=== PATIENT | male | born 1960 | race Caucasian/White ===

== ENCOUNTER 2017-12-26 13:30 | Outpatient (AMBR) | payer MEDICARE, MEDICAID, SELFPAY ==
--- NOTE | 2017-11-11 15:58 | PT.ODAYNRPT ---
PT Outpatient Daily Note OP Daily Note Visit Reasons: LEFT LEG Outpatient Physical Therapy Treatment Date: 11/11/17 Subjective: About the same as time of evaluation Objective: See F/S for therex Assessment: Fair exercise tolerance today with low ankle and foot pain Plan: Continue per POC Length of Time (minutes) of Treatment: 30 Minutes Office Procedures PT Treatments Therapeutic Exercise 30 minutes: Yes
--- NOTE | 2017-11-18 17:49 | PT.ODAYNRPT ---
PT Outpatient Daily Note OP Daily Note Visit Reasons: LEFT LEG Outpatient Physical Therapy Treatment Date: 11/18/17 Subjective: Pt reports he has some pain in the ankle at times but today it's ok Objective: See F/S for therex NMR: PNF in quadruped alternating isometrics x10' Assessment: Fair exercise tolerance today with low ankle and foot pain. Pt has shoulders shifted to the R and the cane is too high in the R hand. Will shift shorter cane to L hand to correct. Plan: Continue per POC Length of Time (minutes) of Treatment: 30 Minutes Office Procedures PT Procedures Therapeutic Exercise 15 minutes: Yes Neuro Re-Education 15 Minutes: Yes PT Treatments Therapeutic Exercise 30 minutes: Yes
--- NOTE | 2017-11-21 16:33 | PT.ODAYNRPT ---
PT Outpatient Daily Note OP Daily Note Visit Reasons: LEFT LEG Outpatient Physical Therapy Treatment Date: 11/21/17 Subjective: He gets tired after exercising a lot faster than he would like to. Objective: See F/S for therex Assessment: Pt has shoulders shifted to the R and the cane is too high in the R hand. Can shift cane to L hand but pt gait is ataxic. Delayed balance reactions and coordination limit dynamic mobility and safety. Gross LE strength is fair but lacks fine motor control. Plan: Continue per POC Length of Time (minutes) of Treatment: 30 Minutes Office Procedures PT Procedures Therapeutic Exercise 15 minutes: Yes Neuro Re-Education 15 Minutes: Yes PT Procedures Therapeutic Exercise 30 minutes: Yes PT Treatments Therapeutic Exercise 30 minutes: Yes
--- NOTE | 2017-11-26 18:41 | PT.ODAYNRPT ---
PT Outpatient Daily Note Date of Service: November 26, 2017 OP Daily Note Visit Reasons: LEFT LEG Outpatient Physical Therapy Treatment Date: 11/26/17 Subjective: He got a night splint for the L foot, hopes it will reduce plantar pain. 2/10 foot pain today Objective: See F/S for therex Assessment: Can shift cane to L hand but pt gait is ataxic. Delayed balance reactions and coordination limit dynamic mobility and safety. Gross LE strength is fair but lacks fine motor control. Plan: Continue per POC Length of Time (minutes) of Treatment: 30 Minutes Office Procedures PT Procedures Therapeutic Exercise 15 minutes: Yes Neuro Re-Education 15 Minutes: Yes PT Procedures Therapeutic Exercise 30 minutes: Yes PT Procedures PT Date of Service: 11/26/17 Therapeutic Exercise 30 minutes: Yes PT Treatments Therapeutic Exercise 30 minutes: Yes
--- NOTE | 2017-11-28 16:13 | PT.ODAYNRPT ---
PT Outpatient Daily Note Date of Service: November 28, 2017 OP Daily Note Visit Reasons: LEFT LEG Outpatient Physical Therapy Treatment Date: 11/28/17 Subjective: He got a night splint for the L foot, hopes it will reduce plantar pain. 2/10 foot pain today Objective: See F/S for therex MT: STM of plantar aspect L foot x10' Assessment: Can shift cane to L hand but pt gait is ataxic either way. Delayed balance reactions and coordination limit dynamic mobility and safety. Gross LE strength is fair but lacks fine motor control. Low tissue irritability of plantar fascia after injection. Plan: Continue per POC Length of Time (minutes) of Treatment: 30 Minutes Office Procedures PT Procedures Therapeutic Exercise 15 minutes: Yes Neuro Re-Education 15 Minutes: Yes PT Procedures Therapeutic Exercise 30 minutes: Yes PT Procedures PT Date of Service: 11/26/17 Therapeutic Exercise 30 minutes: Yes PT Procedures PT Date of Service: 11/28/17 Therapeutic Exercise 15 minutes: Yes Manual School Community Relations Coordinator 15 minutes: Yes PT Treatments Therapeutic Exercise 30 minutes: Yes
--- NOTE | 2017-12-02 14:41 | PT.ODAYNRPT ---
PT Outpatient Daily Note Date of Service: December 02, 2017 OP Daily Note Visit Reasons: LEFT LEG Outpatient Physical Therapy Treatment Date: 12/02/17 Subjective: Good relief from injection to foot to relieve pain. Objective: See F/S for therex Assessment: Can shift cane to L hand but pt gait is ataxic either way. Delayed balance reactions and coordination limit dynamic mobility and safety. Gross LE strength is fair but lacks fine motor control. Low tissue irritability of plantar fascia after injection. Plan: Continue per POC Length of Time (minutes) of Treatment: 30 Minutes Office Procedures PT Procedures Therapeutic Exercise 15 minutes: Yes Neuro Re-Education 15 Minutes: Yes PT Procedures Therapeutic Exercise 30 minutes: Yes PT Procedures PT Date of Service: 12/02/17 Therapeutic Exercise 30 minutes: Yes PT Procedures PT Date of Service: 11/26/17 Therapeutic Exercise 30 minutes: Yes PT Procedures PT Date of Service: 11/28/17 Therapeutic Exercise 15 minutes: Yes Manual Patient Admitting Clerk 15 minutes: Yes PT Treatments Therapeutic Exercise 30 minutes: Yes
--- NOTE | 2017-12-04 14:16 | PTNOTE_ITS ---
Addendum entered and electronically signed by Marcel Youngblood, PT 12/04/17 14: 25: Pt was seen for 40 minutes total Rx time today Original Note: PT OP Progress/Discharge Note Date of Service: December 04, 2017 Progress Note/DC Note Progress Note/Discharge Note: Progress Note Patient Information Visit Reasons: LEFT LEG Admission Reason: M72.2 Medical Diagnosis: M76.62 Service Continue Service or Discharge: Continue Service Discharge Date: 12/04/17 Status Subjective: Good relief from injection to foot to relieve pain. Objective: L ankle AROM: Strength: DF: 15 deg 4/5 PF: 65 deg 4/5 Assessment: Can shift cane to L hand but pt gait is ataxic either way. Delayed balance reactions and coordination limit dynamic mobility and safety. Gross LE strength is fair but lacks fine motor control. Low tissue irritability of plantar fascia after injection. Good closed chain exercise tolerance in standing. Plan: Continue per POC Office Procedures PT Outpatient G-Codes Date of Service PT Date of Service: 12/04/17 G-Codes Walking & Moving Around Mobility Current Status G-Code: G8978: CL 60-80% Mobility Status G-Code: G8979: CK 40-60% PT Procedures Therapeutic Exercise 15 minutes: Yes Neuro Re-Education 15 Minutes: Yes PT Procedures Therapeutic Exercise 30 minutes: Yes PT Procedures PT Date of Service: 12/02/17 Therapeutic Exercise 30 minutes: Yes PT Procedures PT Date of Service: 12/04/17 Therapeutic Exercise 30 minutes: Yes Manual Environmental Sampler 15 minutes: Yes PT Procedures PT Date of Service: 11/26/17 Therapeutic Exercise 30 minutes: Yes PT Procedures PT Date of Service: 11/28/17 Therapeutic Exercise 15 minutes: Yes Manual Environmental Sampler 15 minutes: Yes PT Treatments Therapeutic Exercise 30 minutes: Yes
--- NOTE | 2017-12-12 14:57 | PTNOTE_ITS ---
PT Outpatient Daily Note Date of Service: December 12, 2017 OP Daily Note Visit Reasons: LEFT LEG Outpatient Physical Therapy Treatment Date: 12/12/17 Subjective: Pt feels he can walk further since starting therapy Objective: See F/S for therex Assessment: Delayed balance reactions and coordination limit dynamic mobility and safety. Gross LE strength is fair but lacks fine motor control. Low tissue irritability of plantar fascia after injection. Good closed chain exercise tolerance in standing. Plan: Continue per POC Length of Time (minutes) of Treatment: 30 Minutes Office Procedures PT Outpatient G-Codes Date of Service PT Date of Service: 12/04/17 G-Codes Walking & Moving Around Mobility Current Status G-Code: G8978: CL 60-80% Mobility Status G-Code: G8979: CK 40-60% PT Procedures Therapeutic Exercise 15 minutes: Yes Neuro Re-Education 15 Minutes: Yes PT Procedures Therapeutic Exercise 30 minutes: Yes PT Procedures PT Date of Service: 12/02/17 Therapeutic Exercise 30 minutes: Yes PT Procedures PT Date of Service: 12/04/17 Therapeutic Exercise 30 minutes: Yes Manual Museum Director 15 minutes: Yes PT Procedures PT Date of Service: 12/12/17 Therapeutic Exercise 30 minutes: Yes PT Procedures PT Date of Service: 11/26/17 Therapeutic Exercise 30 minutes: Yes PT Procedures PT Date of Service: 11/28/17 Therapeutic Exercise 15 minutes: Yes Manual Museum Director 15 minutes: Yes PT Treatments Therapeutic Exercise 30 minutes: Yes
--- NOTE | 2017-12-16 14:50 | PTNOTE_ITS ---
PT Outpatient Daily Note Date of Service: December 16, 2017 OP Daily Note Visit Reasons: LEFT LEG Outpatient Physical Therapy Treatment Date: 12/16/17 Subjective: Pt feels he can walk further since starting therapy but he feels weak today. Objective: See F/S for therex Assessment: Exercise tolerance depends on the day since he has good days and bad days. Delayed balance reactions and coordination limit dynamic mobility and safety. Gross LE strength is fair but lacks fine motor control. Low tissue irritability of plantar fascia after injection. Good closed chain exercise tolerance in standing. Plan: Continue per POC Length of Time (minutes) of Treatment: 30 Minutes Office Procedures PT Outpatient G-Codes Date of Service PT Date of Service: 12/04/17 G-Codes Walking & Moving Around Mobility Current Status G-Code: G8978: CL 60-80% Mobility Status G-Code: G8979: CK 40-60% PT Procedures Therapeutic Exercise 15 minutes: Yes Neuro Re-Education 15 Minutes: Yes PT Procedures Therapeutic Exercise 30 minutes: Yes PT Procedures PT Date of Service: 12/02/17 Therapeutic Exercise 30 minutes: Yes PT Procedures PT Date of Service: 12/04/17 Therapeutic Exercise 30 minutes: Yes Manual Meter Supervisor 15 minutes: Yes PT Procedures PT Date of Service: 12/12/17 Therapeutic Exercise 30 minutes: Yes PT Procedures PT Date of Service: 12/16/17 Therapeutic Exercise 30 minutes: Yes PT Procedures PT Date of Service: 11/26/17 Therapeutic Exercise 30 minutes: Yes PT Procedures PT Date of Service: 11/28/17 Therapeutic Exercise 15 minutes: Yes Manual Meter Supervisor 15 minutes: Yes PT Treatments Therapeutic Exercise 30 minutes: Yes
--- NOTE | 2017-12-24 16:20 | PT.ODAYNRPT ---
PT Outpatient Daily Note Date of Service: December 24, 2017 OP Daily Note Visit Reasons: LEFT LEG Outpatient Physical Therapy Treatment Date: 12/24/17 Subjective: Pt feels he can walk further since starting therapy but he feels weak today. Objective: See F/S for therex NMR: alternating isometrics x5' in quadruped Assessment: Exercise tolerance depends on the day since he has good days and bad days. Delayed balance reactions and coordination limit dynamic mobility and safety. Gross LE strength is fair but lacks fine motor control. Low tissue irritability of plantar fascia after injection. Good closed chain exercise tolerance in standing. Plan: Continue per POC Length of Time (minutes) of Treatment: 30 Minutes Office Procedures PT Outpatient G-Codes Date of Service PT Date of Service: 12/04/17 G-Codes Walking & Moving Around Mobility Current Status G-Code: G8978: CL 60-80% Mobility Status G-Code: G8979: CK 40-60% PT Procedures Therapeutic Exercise 15 minutes: Yes Neuro Re-Education 15 Minutes: Yes PT Procedures Therapeutic Exercise 30 minutes: Yes PT Procedures PT Date of Service: 12/02/17 Therapeutic Exercise 30 minutes: Yes PT Procedures PT Date of Service: 12/04/17 Therapeutic Exercise 30 minutes: Yes Manual Voice Network Administrator 15 minutes: Yes PT Procedures PT Date of Service: 12/12/17 Therapeutic Exercise 30 minutes: Yes PT Procedures PT Date of Service: 12/16/17 Therapeutic Exercise 30 minutes: Yes PT Procedures PT Date of Service: 12/24/17 Therapeutic Exercise 30 minutes: Yes PT Procedures PT Date of Service: 11/26/17 Therapeutic Exercise 30 minutes: Yes PT Procedures PT Date of Service: 11/28/17 Therapeutic Exercise 15 minutes: Yes Manual Voice Network Administrator 15 minutes: Yes PT Treatments Therapeutic Exercise 30 minutes: Yes
--- NOTE | 2017-12-26 18:36 | PT.ODS1RPT ---
PT OP Progress/Discharge Note Date of Service: December 26, 2017 Progress Note/DC Note Progress Note/Discharge Note: DC Note Patient Information Visit Reasons: LEFT LEG Admission Reason: M72.2 Medical Diagnosis: M76.62 Service Continue Service or Discharge: Discharge Discharge Date: 12/26/17 Status Subjective: Pt feels he can walk further since starting therapy but it depends on the day. Objective: L ankle AROM: Strength: DF: 15 deg 4+/5 PF: 65 deg 4+/5 Heel raise: x10 TTP: mild of plantar fascia/heel MT: STM to plantar fascia on L x10' with [place] instruments Assessment: Pt has attended 12/ Rx sessions and made good progress and met all therapy goals. Improved heel raise tolerance and DF and PF L ankle strength. Pt can ascend 1 flight of stairs with railing with reciprocol pattern. Exercise tolerance depends on the day since he has good days and bad days. Delayed balance reactions and coordination limit dynamic mobility and safety. Gross LE strength is fair but lacks fine motor control. Low tissue irritability of plantar fascia after injection. Good closed chain exercise tolerance in standing. Plan: D/C with HEP Office Procedures PT Outpatient G-Codes Date of Service PT Date of Service: 12/04/17 G-Codes Walking & Moving Around Mobility Current Status G-Code: G8978: CL 60-80% Mobility Status G-Code: G8979: CK 40-60% PT Outpatient G-Codes Date of Service PT Date of Service: 12/26/17 G-Codes Walking & Moving Around Mobility Status G-Code: G8979: CK 40-60% Mobility DC Status G-Code: G8980: CK 40-60% PT Procedures Therapeutic Exercise 15 minutes: Yes Neuro Re-Education 15 Minutes: Yes PT Procedures Therapeutic Exercise 30 minutes: Yes PT Procedures PT Date of Service: 12/02/17 Therapeutic Exercise 30 minutes: Yes PT Procedures PT Date of Service: 12/04/17 Therapeutic Exercise 30 minutes: Yes Manual Residential Building Inspector 15 minutes: Yes PT Procedures PT Date of Service: 12/12/17 Therapeutic Exercise 30 minutes: Yes PT Procedures PT Date of Service: 12/16/17 Therapeutic Exercise 30 minutes: Yes PT Procedures PT Date of Service: 12/24/17 Therapeutic Exercise 30 minutes: Yes PT Procedures PT Date of Service: 12/26/17 Therapeutic Exercise 15 minutes: Yes Manual Residential Building Inspector 15 minutes: Yes PT Procedures PT Date of Service: 11/26/17 Therapeutic Exercise 30 minutes: Yes PT Procedures PT Date of Service: 11/28/17 Therapeutic Exercise 15 minutes: Yes Manual Residential Building Inspector 15 minutes: Yes PT Treatments Therapeutic Exercise 30 minutes: Yes
== END 2017-12-26 14:30 | disposition home or self-care (01) ==
PROVIDERS: PCP Podiatrist; Referring Provider Podiatrist; Visit Provider Podiatrist
DX: M25.572 Pain in left ankle and joints of left foot (principal); M79.672 Pain in left foot; R26.2 Difficulty in walking, not elsewhere classified; M72.2 Plantar fascial fibromatosis; M76.62 Achilles tendinitis, left leg
CPT/HCPCS: 97110; 97112; 97140; G8978; G8979; G8980